=== PATIENT | female | born 1985 | race Caucasian/White ===

== ENCOUNTER 2017-01-25 06:28 | Day surgery (SDC) | payer MEDICAID ==
[2017-01-25] MEDS ORDERED: MIDAZOLAM HCL 2 MG/2 ML SYR IV ONE ×3 (07:03→07:05)
[2017-01-25] MEDS ORDERED: LIDOCAINE HCL 1% 20 ML VIAL SUBCUT ONE ×3 (07:03→07:05)
[2017-01-25] MEDS ORDERED: FENTANYL 100 MCG/2 ML VIAL IV PRN (07:05)
[2017-01-25] MEDS ORDERED: ONDANSETRON HCL 4 MG/2 ML VIAL IV PRN (07:05)
[2017-01-25] MEDS ORDERED: MORPHINE SULFATE 10 MG/ML SYR IV PRN (07:05)
[2017-01-25] MEDS ORDERED: HYDROmorphone HCL 1 MG/ML SYR IV PRN (07:05)
[2017-01-25] MEDS ORDERED: ACETAMINOPHEN 1,000 MG/100 ML VIAL IV ONE (07:13)
[2017-01-25] MEDS ORDERED: FAMOTIDINE IN SALINE, ISO-OSM 50 ML IV ONE (07:13)
[2017-01-25] MEDS ORDERED: MIDAZOLAM HCL 2 MG/2 ML VIAL ONE (07:14)
[2017-01-25] MEDS ORDERED: ACETAMINOPHEN 1,000 MG/100 ML VIAL IV SCH ×3 (07:15)
[2017-01-25] MEDS ORDERED: FAMOTIDINE IN SALINE, ISO-OSM 20 MG/50 ML PIGGYBACK IV SCH ×3 (07:15)
[2017-01-25] MEDS ORDERED: OXYTOCIN 10 UNITS/ML VIAL ONE (07:25)
--- NOTE | 2017-01-25 07:33 | PROCEDURE NOTE: GYN ---
[facility] Procedure - Brief Operative Note Date of procedure: 01/25/17 Pre-Op Diagnosis: Abnormal uterine ultrasound, menorrhagia Post-op diagnosis: other (endometrial polyp) Procedure: Hysteroscopy with polypectomy Findings: Endometrial polyp Anesthesia Type: Mac Physician: SHERLEY HOYOS Estimated Blood Loss: 5 (Fluid loss 260ml) Pathology: sent Sponge and instrument counts: correct Condition: stable Disposition: PACU Narrative: The patient is taken to the operative theater and placed supine upon the operative table. IV sedation is given. She was placed in dorsal lithotomy position using Denis stirrups. She was prepped and draped in the usual sterile fashion. Bimanual examination is performed and the cervix is visualized. Cervix grasped on the anterior lip with a single-tooth tenaculum. Endocervical curettings are obtained and are submitted to pathology. The uterus sounds to 8 cm. The internal cervical os was then sequentially dilated using Hanks dilators. Diagnostic hysteroscope was entered into the uterine cavity. Endometrial polyp was identified. The remainder of the endometrial cavity is normal in appearance. Using the Myosure device the polyp is resected and submitted to pathology along with endometrial curettings. The instruments are removed, the tenaculum site is hemostatic. The patient is placed supine on the operating table and taken to recovery in good condition. There are no complications.
[2017-01-25] MEDS ORDERED: LACTATED RINGERS 1,000 ML IV SCH ×4 (08:00)
[2017-01-25 08:30] VITALS: TEMP 97.7
[2017-01-25 08:32] VITALS: O2SAT 98
[2017-01-25 08:58] VITALS: RESP 15
[2017-01-25 09:09] VITALS: BP 107/68; PULSE 60
--- NOTE | 2017-01-25 13:50 | PREOPERATIVE H&P ---
History of Present Illness (Matthew Falcon M.D.; 01/24/2017 1:40 PM) The patient is a 31 year old female for evaluation of menstrual problems. The menstrual problem is characterized as intermenstrual bleeding (occasional), heavy menses (requires "double protection" on the heaviest days, menses generally last 7 days) and menstrual cramps (and before menses) and has been occurring for 4 years. The problem has been occurring in a monthly pattern. Currently : no, spouse had vasectomy. The symptoms have been associated with acne and other (low back ache for the past month), while the symptoms have not been associated with breast engorgement, painful intercourse, hot flashes, hirsutism, galactorrhea or pelvic pain. There is no medical history of thyroid disease, dysplasia or breast feeding. The patient denies the use of oral contraceptives, anticoagulants or aspirin. There is no history of use of intrauterine device. Previous diagnostic tests have included: PAP smear (1 year ago) and ultrasound exam (2cm fundal endometrial lesion, possible leiomyoma versus polyp). Additional reasons for visit: Preop Visit is described as the following: The patient feels well with no complaints. Surgical procedures include: hysteroscopy. The reason for surgery is menorrhagia (with endometrial lesion on ultrasound). Date of procedure: (01/25/2017). Planned anesthesia: conscious sedation. There have been no problems with general anesthesia, blood/blood products, or surgery in the past. The patient has no identifiable cardiac risk factors. There are no identifiable risk factors for post operative thromboembolism. In depth conversation with the patient/guardian concerning the procedure, risks, complications, benefits, alternatives, success, possible failure and need for further surgery or intervention questions were answered and no guarantees were made. Problem List/Past Medical (Matthew Falcon M.D.; 01/13/2017 10:03 AM) Allergic reaction to drug (T78.40XA) Chronic bilateral low back pain without sciatica (M54.5) Allergies (Carmela Smith RN; 01/13/2017 9:35 AM) Toradol *ANALGESICS - ANTI-INFLAMMATORY* Anaphylaxis. Aspirin and Ibuprofen are fine. Sulfa Drugs (Bactrim, Pediazole, Septra...) Rash. Family History (Carmela Smith RN; 01/13/2017 10:03 AM) Son 2 In good health. 5 Son 3 In good health. 3 Maternal Grandmother Cancer. and Diabetes Son 1 In good health. 7 Mother 63, colon polyps. Early hysterectomy at age 43 for endometrial hyperplasia. Brother 34 no health problems. Father 66, healthy. Social History (Carmela Smith RN; 01/13/2017 9:36 AM) Alcohol Use Drinks Rarely. Tobacco use Never smoker. Number of Children 3 boys-2011,2009,2007 Medication History (Carmela Smith RN; 01/13/2017 9:37 AM) Probiotic Daily (Oral daily) Active. Multi Vitamin Daily (Oral daily) Active. No Current Medications (Taken starting 01/13/2017) Medications Reconciled / History (Matthew Falcon M.D.; 01/13/2017 10:04 AM) Pregnancies () 3 Deliveries (Parity) 3 Delivery Mode vaginal Maternal complications None. Past Surgical History (Carmela Smith RN; 01/13/2017 9:37 AM) Lfzjeifttxprmkg16/16/2016 w/cholangiogram, Dr. Prieto Review of Systems (Matthew Falcon M.D.; 01/13/2017 10:02 AM) General Present- Feeling well. Not Present- Night Sweats and Weight Loss > 10lbs.. Skin Not Present- Rash. HEENT Present- Corrective lenses. Not Present- Hearing Loss. Neck Not Present- Neck Stiffness. Respiratory Not Present- Cough, Hemoptysis and Wheezing. Breast Not Present- Breast Mass, Breast Pain, Nipple Discharge and Skin Changes. Cardiovascular Not Present- Chest Pain and Fainting / Blacking Out. Gastrointestinal Not Present- Abdominal Pain, Bloating, Bloody Stool and Change in Bowel Habits. Female Genitourinary Present- Urgency (occasional) and Vulvar itching ( occasional). Not Present- Blood in Urine, Dysuria, Frequency, Hematuria, Incontinence, Vaginal Discharge and Vaginal itching/burning. Musculoskeletal Not Present- Joint Pain, Joint Redness and Myalgia. Neurological Not Present- Headaches. Endocrine Not Present- Hot flashes. Hematology Not Present- DVT, Enlarged Lymph Nodes and Spontaneous Bleeding. Vitals (Carmela Smith RN; 01/13/2017 9:35 AM) 01/13/2017 9:33 AM Weight: 143 lb Height: 67in Body Surface Area: 1.75 m Body Mass Index: 22.4 kg/m LMP: 01/10/2017 BP: 106/64 (Sitting, Left Arm, Standard) Physical Exam (Matthew Falcon M.D.; 01/13/2017 10:42 AM) General General Appearance-Well Appearing. Build & Nutrition-Normal. Integumentary Integumentary General Characteristics Overall examination of the patient's skin reveals - no rashes. Head and Neck Neck Global Assessment - full range of motion, No lymphadenopathy. Thyroid Gland Characteristics - normal size and consistency and no palpable nodules. ENMT Mouth and Throat Oral Cavity/Oropharynx - Oropharynx - no evidence of airway distress observed. Chest and Lung Exam Chest and lung exam reveals -Clear and quiet, even and easy respiratory effort with no use of accessory muscles. Cardiovascular Cardiovascular examination reveals -normal heart sounds, regular rate and rhythm with no murmurs. Abdomen Inspection Inspection of the abdomen reveals - No Hernias. Palpation/Percussion Palpation and Percussion of the abdomen reveal - Non Tender, No hepatosplenomegaly and No Palpable abdominal masses. Other Characteristics - No Costovertebral angle tenderness - Left, No Costovertebral angle tenderness - Right. Female Genitourinary External Genitalia Vulva - Characteristics - Normal. Labia Majora - Characteristics - Bilateral - Normal. Perineum - Intact. Clitoris - Normal. Labia Minora - Characteristics - Bilateral - Normal. Introitus - Characteristics - Non Tender. Bartholin's Gland - Bilateral - Non Tender. Urethra - Characteristics - Normal. Urethral Meatus - Characteristics - No Urethral Caruncle. [place] Gland - Bilateral - Normal. Speculum & Bimanual Vagina - Vaginal Wall - Normal. Vaginal Lesions - None. Vaginal Mucosa - [place] and [place], No Secretions. Cervix - Characteristics - Parous, No Motion tenderness. Discharge - Scant and Brown. Uterus - Characteristics - Tender. Position - Anteverted. Adnexa - Characteristics - Bilateral - Non Tender. Masses - No Adnexal Masses. Bladder - Not Tender. Boxing Promoter-present for exam . Peripheral Vascular Lower Extremity Palpation - Tenderness - Bilateral - Non Tender. Edema - Bilateral - No edema. Neuropsychiatric Mental status exam performed with findings of-Oriented X3 with appropriate mood and affect. Lymphatic Axillary General Axillary Region: Bilateral - Description - No Localized lymphadenopathy. Supraclavicular Nodes: Bilateral - Supraclavicular Lymph Nodes - No supraclavicular lymphadenopathy. Assessment & Plan (Matthew Falcon M.D.; 01/13/2017 10:47 AM) Menorrhagia with regular cycle (N92.0) Impression: Since menses returned after her last childbirth. Spouse has had vasectomy. Reviewed ultrasound films, 2cm endometrial lesion consistent with possible polyp versus submucous leiomyoma. Could potentially also represent placental polyp given the time frame. Discussed with patient and recommend consideration of hysteroscopic evaluation and resection. She concurs with plan. Also discussed given the otherwise normal uterine size it's unlikely to be the cause of her intermittent urinary symptoms and if they persist consider referral for cystoscopy. Questions answered and pre-operative evaluation completed today. Current Plans HYSTRSCPY W/BX ENDOM AND/OR PLYPTMY w/wo D&C(18706) Pt Education - surgical scrub tech Preoperative Instructions Pt Education - Hysteroscopy for Removal of Uterine Polyp: therapeutic hysteroscopy Abnormal ultrasound of uterus (R93.5) Impression: As noted above Signed by Matthew Falcon M.D. (01/24/2017 1:40 PM) ROSSANA
== END 2017-01-25 09:15 | disposition home or self-care (01) ==
LOC: SDS 06:28 → IN 10:05 → UNDOADMOB 10:05
PROVIDERS: ATTEND Obstetrics & Gynecology
DX: N84.0 Polyp of corpus uteri (principal); N92.0 Excessive and frequent menstruation with regular cycle
CPT/HCPCS: 84703; J2250; J2590; J3010

== ENCOUNTER 2017-01-30 11:26 | Emergency (ER) | payer MEDICAID ==
[2017-01-30 11:51] LABS: BASOPHILS 0.6 % (0.0-2.0); EOSINOPHILS 3.4 % (0.0-6.0); EOSINOPHILS# 0.2 X 10^3uL (0.0-0.4); HEMATOCRIT 42.9 % (36.0-48.0); HEMOGLOBIN 15.1 g/dL (12.0-16.0); LYMPHOCYTES 31.3 % (20.0-40.0); LYMPHOCYTES# 1.8 X 10^3uL (0.8-3.8); MEAN CELL VOLUME 90.5 fL (80.0-100.0); MEAN CORPUS. HGB CONCENTRATION 35.1 g/dL (32.0-36.0); MEAN CORPUSCULAR HEMOGLOBIN 31.8 pg (29.0-35.0); MEAN PLATELET VOLUME 8.1 fL (7.4-10.4); MONOCYTES 9.5 % (2.0-10.0); MONOCYTES# 0.5 X 10^3uL (0.2-1.0); NEUTROPHILS 55.2 % (54.0-75.0); NEUTROPHILS# 3.1 X 10^3uL (2.6-6.7); RED BLOOD COUNT 4.75 X 10^6uL (4.20-6.10); RED CELL DISTRIBUTION WIDTH 11.2 % (11.5-14.5); WHITE BLOOD COUNT 5.6 X 10^3uL (3.9-10.7)
[2017-01-30] MEDS ORDERED: ONDANSETRON HCL 4 MG/2 ML VIAL ONE ×2 (12:09→12:46)
[2017-01-30] MEDS ORDERED: HYDROmorphone HCL 1 MG/ML SYR ONE (12:09)
[2017-01-30] MEDS ORDERED: NORMAL SALINE 1,000 ML IV ONE ×2 (12:10→13:19)
--- NOTE | 2017-01-30 15:22 | ER PHYSICIAN DOCUMENTATION ---
Physician Documentation [facility] Name:Geeta Garcia Age:31 yrs Sex:Female :1985 Arrival Date:01/30/2017 Time:11:26 Bed3 Private MD:Leatha Suazo ED, Tom Disposition: 01/31 05:54 Chart complete. tl1 Disposition: 01/30/17 12:50 Discharged to Home/Self Care. Impression: Dysfunctional Uterine Bleeding (DUB). - Condition is Good. - Discharge Instructions: DYSFUNCTIONAL UTERINE BLEEDING, Progesterone. - Prescriptions for Provera - take 10 milligram by ORAL route once daily for 10 days; 10 tablet. [place] 10- 325 mg Oral - take 1 tablet by ORAL route every 6 hours As needed; 12 tablet. Zofran 4 mg Oral Tablet - take 1 tablet by ORAL route every 12 hours .; 20 tablet. - Medical Reconciliation form form. - Follow up: Matthew Falcon MD; When: 2 - 3 days; Reason: Recheck today's complaints, Continuance of care. - Problem is new. - Symptoms have improved. HPI: 01/30 11:29 This 31 yrs old Female presents to ER with complaints of Vaginal Bleeding. tl1 11:45 5 days ago she had a d&c for a uterine polyp and did well until 2 days ago when she tl1 developed increasing bleeding. This worsened somewhat yesterday. Last night she was OK, but this morning she noted increased cramping and increased bleeding as well, with over a pad an hour and she comes in because she was told to if her bleeding exceeded a pad per hour. She denies f/c/s/urinary symptoms or change in bowel habits. She has crampy 5/10 pain. Denies lightheadedness. . 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 Tylenol #3 Oral 2. Oxycodone HCl Oral 3. Ibuprofen Oral 4. multivitamin with minerals oral 5. Probiotic oral - PSHx: Cholecysectomy; - Tetanus: Other NA today. - Ebola Screening: : No symptoms or risks identified at this time. . - Social history: Smoking status: Patient states was never smoker of tobacco. Patient/guardian denies using alcohol, street drugs. ROS: 14:18 Positive for pelvic pain, vaginal bleeding. tl1 Exam: 14:19 Constitutional: This is a well developed, well nourished patient who is awake, alert, tl1 and in no acute distress. Head/Face: Normocephalic, atraumatic. Neck: Trachea midline, no thyromegaly or masses palpated, and no cervical lymphadenopathy. Supple, full range of motion without nuchal rigidity, or vertebral point tenderness. No Meningismus. Cardiovascular: Regular rate and rhythm with a normal S1 and S2. No gallops, murmurs, or rubs. Normal PMI, no JVD. No pulse deficits. 14:19 Respiratory: Lungs have equal breath sounds bilaterally, clear to auscultation and tl1 percussion. No rales, rhonchi or wheezes noted. No increased work of breathing, no retractions or nasal flaring. 14:19 Abdomen/GI: Inspection: abdomen appears normal, Bowel sounds: normal, Palpation: soft, mild abdominal tenderness, in the suprapubic area. 14:19 : CVA tenderness, is absent, Pelvic Exam: External exam: is normal, Speculum exam: no bleeding is noted, bimanual exam reveals no cervical motion tenderness, an enlarged uterus, uterine tenderness, no adnexa tenderness or masses bilaterally. 14:19 Skin: Exam negative for acute changes. 14:19 Neuro: Exam negative for acute changes. Vital Signs: 11:35 BP 120 / 96; Pulse 86; Resp 20; Temp 98.5(O); Pulse Ox 95% on R/A; Weight 64.86 kg (R); arc Height 5 ft. 7 in. (170.18 cm) (R); Pain 5/10; 12:36 BP 106 / 65; Pulse 60; Resp 12; Pulse Ox 93% on R/A; arc 14:49 BP 105 / 52 Sitting; Pulse 73; Resp 12; Pulse Ox 95% on R/A; Pain 4/10; nf 15:15 BP 107 / 56; Pulse 69; Resp 12; Pulse Ox 96% on R/A; Pain 2/10; nf 11:35 Body Mass Index 22.40 (64.86 kg, 170.18 cm) arc MDM: 11:29 Patient medically screened. tl1 14:27 Data reviewed: vital signs, nurses notes, old medical records, and as a result, I will tl1 discharge patient. Counseling: I had a detailed discussion with the patient and/or guardian regarding: the historical points, exam findings, and any diagnostic results supporting the discharge/admit diagnosis, lab results, the need for outpatient follow up, to return to the emergency department if symptoms worsen or persist or if there are any questions or concerns that arise at home. Response to treatment: There is no appreciated change of the patient's symptoms at this time, and as a result, I will discharge patient. 01/30 11:52 Order name: CBC AUTO DIF, MDIF/RMOR IF IND; Complete Time: 12:35 EDMS 01/30 12:35 Interpretation: WHITE BLOOD COUNT 5.6; HEMOGLOBIN 15.1; HEMATOCRIT 42.9; PLATELET COUNT tl1 232. 01/30 11:38 Order name: NPO; Complete Time: 11:51 nf 01/30 11:38 Order name: Place Patient In Pelvic Bed; Complete Time: 11:51 nf 01/30 11:38 Order name: Undress Patient; Complete Time: 11:51 nf Dispensed Medications: 12:05 Drug: Zofran 4 mg; Route: IVP; Infused Over: 2 mins; Site: left antecubital; nf 12:49 Follow up: Response: No adverse reaction nf 12:05 Drug: NS 0.9% 1000 ml; Route: IV; Rate: bolus; Site: left antecubital; nf 13:15 Follow up: IV Status: Completed infusion nf 12:35 Drug: Zofran 4 mg; Route: IVP; Infused Over: 2 mins; Site: left antecubital; nf 13:10 Follow up: Response: Nausea is decreased nf 12:49 CANCELLED (Physician Discretion): Dilaudid 1 mg IVP once tl1 13:14 CANCELLED (Physician Discretion; medication not available in [facility], prescription to be nf given): proGESTerone 10 mg PO once 13:15 Drug: NS 0.9% 1000 ml; Route: IV; Rate: bolus; Site: left antecubital; nf 14:48 Follow up: IV Status: Completed infusion nf Signatures: Liz Sandoval RN RN nf Leigh, Tom, MD MD tl1
--- NOTE | 2017-01-30 15:22 | ER NURSING DOCUMENTATION ---
Nurse's Notes [facility] Name:Geeta Garcia Age:31 yrs Sex:Female :1985 Arrival Date:01/30/2017 Time:11:26 Bed3 Private MD:Leatha Suazo Diagnosis:Dysfunctional Uterine Bleeding (DUB) Presentation: 01/30 11:30 Transition of care: patient was not received from another setting of care. Risk nf considerations: Patient denies syncope. status unknown. Notified ED Physician of patient's arrival and CC Dr. Tinajero notified. 11:30 Acuity: ALICIA 3 nf 11:30 Method Of Arrival: Walk In nf 11:41 Care prior to arrival: today:tylenol, ibuprofen, and oxycodone without adequate relief. nf 11:45 Presenting complaint: Patient states: had d&c [place] [facility] [place] Damon Kumar, has continued to nf bleed and have pain, seeking evaluation for both, pain medication inadequate today at home, soaked 6 pads since 0700 today. Triage Assessment: 11:30 Pain: Complains of pain in pelvic pain and RLQ pain Pain does not radiate. Quality of nf pain is described as sharp. Cardiovascular: No deficits noted. Capillary refill < 3 seconds Reports fatigue, Nausea. Respiratory: No deficits noted. Respiratory effort is even, unlabored, Respiratory pattern is regular. GI: Abd is soft and non tender X 4 quads. Reports nausea. : No deficits noted. Reports cramping vaginal bleeding that is with clots Denies burning with urination, incontinence, urinary frequency, urgency. 11:41 General: Appears in no apparent distress, uncomfortable, well nourished, well groomed, nf Behavior is pleasant. 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 Tylenol #3 Oral 2. Oxycodone HCl Oral 3. Ibuprofen Oral 4. multivitamin with minerals oral 5. Probiotic oral - PSHx: Cholecysectomy; - Tetanus: Other NA today. - Ebola Screening: : No symptoms or risks identified at this time. . - Social history: Smoking status: Patient states was never smoker of tobacco. Patient/guardian denies using alcohol, street drugs. Screenin:49 Infectious Disease Risk None. Abuse screen: Denies threats or abuse. Nutritional nf screening: No deficits noted. Assessment: 11:30 See Triage Assessment done by same RN. nf 11:30 Pain: Also complains of see triage assessment. nf 12:31 Reassessment: patient moved by wheelchair to 3 for pelvic bed; pain decreased, nf complains of dizziness and increased nausea with movement. 12:45 : Genitalia appear normal Reports vaginal bleeding that is bright red. nf 14:48 Reassessment: patient reports feeling improved enough to try and go home; sitting up in nf bed taking ice chips. 01/31 23:59 Reassessment: addendum: Dilaudid 1mg IV was ordered by Arturo. The medication was nf administered at 1205 on January 30, 2017 via left AC. At 1249 medication followup was : pain is decreased. The order was unintentionally canceled by Arturo, and it's administration and follow up were not evident in the nurse's notes.. Vital Signs: 01/30 11:35 BP 120 / 96; Pulse 86; Resp 20; Temp 98.5(O); Pulse Ox 95% on R/A; Weight 64.86 kg (R); arc Height 5 ft. 7 in. (170.18 cm) (R); Pain 5/10; 12:36 BP 106 / 65; Pulse 60; Resp 12; Pulse Ox 93% on R/A; arc 14:49 BP 105 / 52 Sitting; Pulse 73; Resp 12; Pulse Ox 95% on R/A; Pain 4/10; nf 15:15 BP 107 / 56; Pulse 69; Resp 12; Pulse Ox 96% on R/A; Pain 2/10; nf 11:35 Body Mass Index 22.40 (64.86 kg, 170.18 cm) [facility] ED Course: 11:27 Patient arrived in ED. arc 11:28 Leatha Suazo is Private Physician. arc 11:29 Alvaro Tinajero MD is Attending Physician. tl1 11:29 Liz Sandoval, EWELINA is Primary Nurse. nf 11:30 Triage completed. nf 11:31 Valuables Remains with patient Placed in gown. Bed in low position. Side rails up X 1. nf 11:35 Warm blanket given. arc 11:44 Inserted peripheral IV: 20 gauge in left antecubital area and blood collected. arc 11:49 Pulse Ox - RN Monitoring Only NIBP On - RN Monitoring Only. Diet: Patient is NPO. nf 12:15 Family accompanied patient. nf 12:40 Assist Provider Assist provider with pelvic exam: Set up pelvic tray. Performed by Alvaro Tinajero MD Patient tolerated well. [place] swabs used, no specimens collected. 12:49 Matthew Falcon MD is Referral Physician. tl1 13:22 warm moist pack to RLQ. nf 14:49 Diet: Patient given ice chips. nf 15:15 Diet: Tolerated well tolerated po challenge. nf Administered Medications: 12:05 Drug: Zofran 4 mg; Route: IVP; Infused Over: 2 mins; Site: left antecubital; nf 12:49 Follow up: Response: No adverse reaction nf 12:05 Drug: NS 0.9% 1000 ml; Route: IV; Rate: bolus; Site: left antecubital; nf 13:15 Follow up: IV Status: Completed infusion nf 12:35 Drug: Zofran 4 mg; Route: IVP; Infused Over: 2 mins; Site: left antecubital; nf 13:10 Follow up: Response: Nausea is decreased nf 12:49 CANCELLED (Physician Discretion): Dilaudid 1 mg IVP once tl1 13:14 CANCELLED (Physician Discretion; medication not available in [facility], prescription to be nf given): proGESTerone 10 mg PO once 13:15 Drug: NS 0.9% 1000 ml; Route: IV; Rate: bolus; Site: left antecubital; nf 14:48 Follow up: IV Status: Completed infusion nf Outcome: 12:50 Discharge ordered by . tl1 15:19 Discharged to home via wheelchair, with family. nf 15:19 Condition: improved 15:19 Discharge Assessment: Patient awake, alert and oriented x 3. No cognitive and/or functional deficits noted. Patient verbalized understanding of disposition instructions. 15:19 Discharge instructions given to patient, significant other, Instructed on discharge instructions, follow up and referral plans. medication usage, no drinking with medication, no driving heavy equipment, Demonstrated understanding of instructions, medications, Prescriptions given X 3, zofran and norco and provera 15:19 IV D/Jakob 15:21 Patient left the ED. nf 01/31 13:21 Discharge F/U Call: Unable to reach: left voicemail: ke Signatures: Liz Sandoval RN RN Alvaro Gaviria MD MD tl1 Karen Suazo, Kuldip Reg Jessie Orozco RN RN ke
== END 2017-01-30 15:21 | disposition home or self-care (01) ==
LOC: ER 11:26
DX: N93.8 Other specified abnormal uterine and vaginal bleeding (principal); R10.2 Pelvic and perineal pain; Z98.890 Other specified postprocedural states; Z79.899 Other long term (current) drug therapy
CPT/HCPCS: 85025; 96361; 96374; 99284; J1170; J2405; J7030